=== PATIENT | male | born 1985 ===

== ENCOUNTER 2021-05-28 05:33 | Emergency (ER) | payer SELFPAY ==
[~2021-05-28] VITALS: Ht 165.1 cm; Wt 63.6 kg
[2021-05-28] MEDS ORDERED: DEXAMETHASONE 4 MG TABLET PO ONE (06:15)
[2021-05-28 06:37] VITALS: BP 122/95
[2021-05-28] MEDS ORDERED: NEOM10DR32 RIGHT EAR (06:40)
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
--- NOTE | 2021-05-29 10:08 | NUR ---
IP: Attempted x 2 to contact pt concerning covid results. No answer, no voicemail.
--- NOTE | 2021-05-30 09:24 | NUR ---
IP: Informed pt of negative covid test. Pt verbalized understanding.
== END 2021-05-28 07:01 | disposition home or self-care (01) ==
LOC: ER 05:33
DX: H60.501 Unspecified acute noninfective otitis externa, right ear (principal); Z20.822 Contact with and (suspected) exposure to COVID-19; H61.21 Impacted cerumen, right ear
CPT/HCPCS: 69209; 99283; U0003; U0005